=== PATIENT | female | born 1965 | race Caucasian/White ===

== ENCOUNTER 2018-02-23 17:10 | Emergency (ER) | payer OTHER ==
[~2018-02-23] VITALS: Ht 162.6 cm; Wt 61.2 kg
[2018-02-23] MEDS ORDERED: KEFLEX500 M1 PO (18:17)
[2018-02-23 18:45] VITALS: BP 112/58
== END 2018-02-23 18:47 | disposition home or self-care (01) ==
LOC: ER 17:10
DX: M71.122 Other infective bursitis, left elbow (principal); R00.0 Tachycardia, unspecified; Z88.1 Allergy status to other antibiotic agents; Z88.5 Allergy status to narcotic agent

== ENCOUNTER 2020-06-21 19:51 | Emergency (ER) | payer OTHER ==
[~2020-06-21] VITALS: Ht 165.1 cm; Wt 70.8 kg
[~2020-06-21 19:51] MED LIST: KEFLEX500 M1 PO
[2020-06-21] MEDS ORDERED: HYDROCODON-ACE1 EAC7 PO (22:11)
[2020-06-21 22:40] VITALS: BP 118/69
== END 2020-06-21 22:45 | disposition home or self-care (01) ==
LOC: ER 19:51
DX: S92.354A Nondisplaced fracture of fifth metatarsal bone, right foot, initial encounter for closed fracture (principal); Z79.899 Other long term (current) drug therapy; Z88.1 Allergy status to other antibiotic agents; Z88.5 Allergy status to narcotic agent; X50.1XXA Overexertion from prolonged static or awkward postures, initial encounter; Y93.89 Activity, other specified; Y92.89 Other specified places as the place of occurrence of the external cause; Y99.8 Other external cause status